=== PATIENT | female | born 1945 | race Caucasian/White ===

== ENCOUNTER → 2023-10-08 | Outpatient (CLI) | payer MEDICARE ==
[~2023-10-08] MED LIST: GABA-531 PO; LISI1TAB49 PO; SIMV10TA97 PO
[2023-10-08 12:32] LABS: CHOLESTEROL 176 mg/dL (<200); HDL CHOLESTEROL 92 mg/dL (35-85); LDL DIRECT 70 mg/dL (0-99); TRIGLYCERIDES 26 mg/dL (30-200)
== END | disposition home or self-care (01) ==
LOC: LAB 10:26
PROVIDERS: ATTEND Student in an Organized Health Care Education/Training Program
DX: E78.5 Hyperlipidemia, unspecified (principal)
CPT/HCPCS: 36415; 80061